=== PATIENT | female | born 1995 | race Two or more races ===

== ENCOUNTER 2016-11-27 08:51 | Emergency (ER) | payer MEDICAID ==
[~2016-11-27] VITALS: Ht 160 cm; Wt 56.7 kg
[~2016-11-27 08:51] MED LIST: PREN-96 PO
[2016-11-27 09:10] VITALS: BP 139/53
== END 2016-11-27 10:22 | disposition home or self-care (01) ==
LOC: ER 08:51
DX: S61.232A Puncture wound without foreign body of right middle finger without damage to nail, initial encounter (principal); W55.03XA Scratched by cat, initial encounter; Y93.89 Activity, other specified; Y99.8 Other external cause status; Y92.89 Other specified places as the place of occurrence of the external cause